=== PATIENT | female | born 1995 | race Caucasian/White ===

== ENCOUNTER 2020-04-21 07:40 | Outpatient (REF) | payer OTHER, SELFPAY ==
[2020-04-21 08:53] LABS: MANUAL DIFF FLAG NO
[2020-04-21 09:02] LABS: Basophils Absolute Auto 0.1 X10*3/uL (0.0-0.2); Basophils Percent Auto 1.1 % (0-2); Eosinophils Absolute Auto 0.2 X10*3/uL (0.0-0.4); Eosinophils Percent Auto 3.2 % (0-4); Hematocrit 40.8 % (37-47); Hemoglobin 13.8 g/dl (12.0-16.0); Imm Gran Abs Auto 0.01 X10*3/uL (0.00-0.03); Imm Gran Pct Auto 0.2 % (0.0-0.4); Lymphocytes Absolute Auto 1.5 X10*3/uL (1.2-4.9); Lymphocytes Percent Auto 31.4 % (20-40); Mean Corpuscular HGB Conc 33.8 g/dl (31.0-35.0); Mean Corpuscular Hemoglobin 28.4 pg (27.0-33.0); Mean Platelet Volume 10.9 fL (9.4-12.3); Monocytes Absolute Auto 0.3 X10*3/uL (0.1-1.2); Monocytes Percent Auto 6.5 % (2-11); Neutrophils Absolute Auto 2.7 X10*3/uL (2.0-8.3); Neutrophils Percent Auto 57.6 % (45-73); Platelet Count 221 X10*3/uL (160-400); Red Blood Count 4.86 X10*6/uL (4.20-5.50); Red Cell Distribution Width 12.5 % (11.0-16.0); White Blood Count 4.6 X10*3/uL (4.8-10.8)
[2020-04-21 09:31] LABS: Alanine Aminotransferase 16 U/L (0-31); Albumin Level 4.3 g/dL (3.5-5.0); Alkaline Phosphatase 77 U/L (39-117); Anion Gap 12 (12-20); Aspartate Amino Transferase 13 U/L (5-31); Bilirubin Total 0.4 mg/dL (0.0-1.0); Blood Urea Nitrogen 14 mg/dL (9-16); C Reactive Protein 0.04 mg/dL (< or = 0.50); Calcium 9.4 mg/dL (8.4-10.2); Carbon Dioxide 27 mmol/L (22-29); Chloride 105 mmol/L (96-108); Cholesterol 203 mg/dL; Estimated Glomerular Filt Rate > 60; Glucose Random 91 mg/dL (60-115); HDL Cholesterol 49 mg/dL; Iron 75 mcg/dL (30-160); LDL Cholesterol Calculated 131 mg/dl; Percent Iron Saturation 19 % (15-50); Sodium 140 mmol/L (135-145); Total Iron Binding Capacity 387 mcg/dL (228-428); Total Protein 6.6 g/dL (6.5-8.0); Triglycerides 118 mg/dL; Unsaturated Iron Binding 312 ug/dL
[2020-04-21 09:41] LABS: Ferritin 22 ng/mL (10-122); Free T4 (Free Thyroxine) 0.95 ng/dL (0.71-1.85); Thyroid Stimulating Hormone 1.32 mIU/mL (0.32-4.0)
[2020-04-21 10:03] LABS: Estimated Average Glucose 94 mg/dL; Hemoglobin A1c % 4.9 %
[2020-04-22 09:05] LABS: Triiodothyronine T3 Free 2.9 pg/mL (2.3-4.2)
[2020-04-24 13:52] LABS: Insulin Level Total 9.1 uIU/mL
[2020-04-24 16:32] LABS: Calcium (PTHI) 9.7 mg/dL (8.6-10.2); PTHI 51 pg/mL (14-64)
[2020-04-24 17:21] LABS: Zinc 77 mcg/dL (60-130)
[2020-04-24 21:20] LABS: Folate 7.6 ng/mL (> or = 4.0); Vitamin B12 731 pg/mL (200-900)
[2020-04-26 12:31] LABS: Vitamin B1 8 nmol/L (8-30)
[2020-04-26 13:17] LABS: Vitamin A 44 mcg/dL (38-98)
== END 2020-04-21 07:41 | disposition home or self-care (01) ==
LOC: HO.LAB 07:40
PROVIDERS: PCP Internal Medicine; Visit Provider Surgery
DX: K90.49 Malabsorption due to intolerance, not elsewhere classified (principal); E03.9 Hypothyroidism, unspecified
CPT/HCPCS: 36415; 80053; 80061; 82306; 82607; 82728; 82746; 83036; 83525; 83540; 83970; 84425; 84439; 84443; 84481; 84590; 84630; 85025; 86140

== ENCOUNTER → 2020-05-26 08:19 | Outpatient (BNVA) | payer OTHER, SELFPAY | PROVIDERS: PCP Family Medicine; Referring Provider Family Medicine; Visit Provider Physician Assistant | DX: Z76.89 Persons encountering health services in other specified circumstances (principal) ==

== ENCOUNTER → 2020-07-31 10:44 | Outpatient (BNVA) | payer OTHER, SELFPAY | PROVIDERS: Visit Provider Surgery ==

== ENCOUNTER → 2020-09-06 11:10 | Outpatient (BNVA) | payer OTHER, SELFPAY | PROVIDERS: Visit Provider Surgery | DX: E66.3 Overweight (principal); P38.9 Omphalitis without hemorrhage | CPT/HCPCS: 99212 ==

== ENCOUNTER → 2020-10-11 13:10 | Outpatient (BNVA) | payer OTHER, SELFPAY | PROVIDERS: Visit Provider Surgery | DX: M79.3 Panniculitis, unspecified (principal); P38.9 Omphalitis without hemorrhage; L03.90 Cellulitis, unspecified | CPT/HCPCS: 99212 ==

== ENCOUNTER → 2020-11-10 08:11 | Outpatient (BNVA) | payer OTHER, SELFPAY | PROVIDERS: Visit Provider Surgery ==

== ENCOUNTER 2021-02-28 14:22 | Emergency (ER) | payer OTHER, SELFPAY ==
--- NOTE | ~2021-02-28 | CT_ITS ---
EXAMINATION: CT ABDOMEN AND PELVIS WITHOUT CONTRAST CLINICAL INFORMATION: Epigastric pain COMPARISON: None TECHNIQUE: Multidetector volumetric imaging was performed from the superior aspect of the liver through the pubic symphysis. Sagittal and coronal reformatted images were obtained on the technologist's workstation. This CT examination was performed using dose optimization techniques as appropriate, variously including the following: *Automated exposure control *Adjustment of mA and/or kV according to patient size (this includes techniques or standardized protocols for targeted exams where dose is matched to indication/reason for exam; i.e. extremities or head) *Use of iterative reconstruction technique DLP: 382 mGy-cm FINDINGS: LUNG BASES: The visualized lung bases are unremarkable. LIVER, GALLBLADDER, AND BILIARY TREE: Small area of low attenuation right lobe liver lower image 23 uncertain allergy. May well be incidental cysts. Mild high density in the gallbladder may represent sludge or stones PANCREAS: Region of the pancreas is not adequately defined. No obvious free fluid in the region. Unopacified bowel and noncontrast study. High density structure in the region of the tail the pancreas may be a migrated surgical staple SPLEEN: Unremarkable. ADRENAL GLANDS: Unremarkable. KIDNEYS AND URETERS: No obvious hydronephrosis. No stone BLADDER: Unremarkable. GASTROINTESTINAL TRACT: Thin is limited from lack of oral and intravenous contrast. There are surgical sutures in likely amada around the region of the stomach. No free fluid is seen in the area. The bowel pattern is overall nonobstructing. Some mildly prominent caliber small bowel loops in left upper quadrant. Again no obvious obstruction. ABDOMINAL WALL: No significant hernia is appreciated. LYMPH NODES: Normal. VASCULAR: Unremarkable. PELVIC VISCERA: Cystic change in the left adnexa. 0.3 x 4.4 cm. IUD associated with the uterus OSSEOUS STRUCTURES: Unremarkable. CT/CT abdomen pelvis wo con IMPRESSION: This exam is limited from lack of oral and intravenous contrast. Mildly prominent caliber small bowel loops in left upper quadrant however overall nonobstructive bowel pattern. This may represent a focal ileus. Cystic change associated with the left adnexa. Consider ultrasound. The region the pancreas is poorly defined. No free fluid in the area. There is a surgical skin staple which may have migrated inferiorly into the region of the tail of the pancreas
--- NOTE | ~2021-02-28 | US_ITS ---
EXAMINATION: US ABDOMEN LIMITED CLINICAL INFORMATION: Rule out cholecystitis. COMPARISON: None TECHNIQUE: Real-time imaging of the right upper quadrant abdominal viscera. FINDINGS: PANCREAS: Within normal limits. Liver is within normal limits. No ductal dilatation. There is no free fluid. There is a small fixed filling defect in the gallbladder measuring 3 mm. May well represent a small polyp. No edema. Common duct is measuring 2 mm normal. Right kidney is 9 cm within normal limits. No hydronephrosis or stone. US/US abdomen limited IMPRESSION: Small polyp in the gallbladder. No evidence of cholelithiasis or cholecystitis. No ductal dilatation
[2021-02-28 15:30] VITALS: BP 112/71; PULSE 94; RESP 18; TEMP 36.7; O2SAT 99; BMI 25.7
[2021-02-28 17:01] LABS: MANUAL DIFF FLAG NO
[2021-02-28 17:05] LABS: Basophils Percent Auto 0.6 % (0-2); Eosinophils Percent Auto 0.6 % (0-4); Hematocrit 39.6 % (37-47); Hemoglobin 13.7 g/dl (12.0-16.0); Imm Gran Abs Auto 0.02 X10*3/uL (0.00-0.03); Imm Gran Pct Auto 0.4 % (0.0-0.4); Lymphocytes Absolute Auto 1.7 X10*3/uL (1.2-4.9); Lymphocytes Percent Auto 32.2 % (20-40); Mean Corpuscular HGB Conc 34.6 g/dl (31.0-35.0); Mean Corpuscular Volume 83.7 fL (80-98); Mean Platelet Volume 8.7 fL (9.4-12.3); Monocytes Absolute Auto 0.2 X10*3/uL (0.1-1.2); Monocytes Percent Auto 4.4 % (2-11); Neutrophils Absolute Auto 3.3 X10*3/uL (2.0-8.3); Neutrophils Percent Auto 61.8 % (45-73); Platelet Count 327 X10*3/uL (160-400); Red Blood Count 4.73 X10*6/uL (4.20-5.50); Red Cell Distribution Width 11.9 % (11.0-16.0); White Blood Count 5.3 X10*3/uL (4.8-10.8)
[2021-02-28 17:40] LABS: Glucose Urine UA NEG (NEG); Leukocyte Esterase Urine NEG (NEG); Nitrite Urine NEG (NEG); Urine Blood NEG (NEG); Urine Ketones NEG (NEG); Urine Protein NEG (NEG-TRACE)
[2021-02-28 17:42] LABS: Appearance Urine CLEAR; Color Urine YELLOW
[2021-02-28 17:45] LABS: Alanine Aminotransferase 11 U/L (0-31); Albumin Level 4.4 g/dL (3.5-5.0); Alkaline Phosphatase 70 U/L (39-117); Anion Gap 13 (12-20); Aspartate Amino Transferase 13 U/L (5-31); Bilirubin Total 0.8 mg/dL (0.0-1.0); Blood Urea Nitrogen 13 mg/dL (9-16); Calcium 9.8 mg/dL (8.4-10.2); Carbon Dioxide 29 mmol/L (22-29); Chloride 104 mmol/L (96-108); Creatinine Clr Calc Pharmacy 65.4; Estimated Glomerular Filt Rate > 60; Glucose Random 91 mg/dL (60-115); Potassium 3.8 mmol/L (3.3-5.1); Sodium 142 mmol/L (135-145)
--- NOTE | 2021-02-28 19:22 | ED.ABDPAIN ---
HPI - Abdominal Pain General Chief Complaint: Abdominal Pain Stated Complaint: abd pain Time Seen by Provider: 02/28/21 16:10 Source: patient Mode of arrival: ambulatory Limitations: no limitations History of Present Illness HPI narrative: Patient comes emergency room complaining of severe abdominal pain with food intake. Patient states that for about 5 days now, any time that she eats anything solid, the pain starts, fluid also trigger the pain but is not as bad as with solids. Patient had bariatric surgery done in December of 2019. Patient states she has been doing well. Patient denies vomiting or diarrhea Related Data Home Medications Medication Instructions Recorded Confirmed methylphenidate HCl 54 mg 54 mg PO DAILY 05/26/20 05/26/20 tablet,extended release 24 hr (Concerta) Previous Rx's Medication Instructions Recorded clotrimazole 1 % topical cream 1 appl TOPICAL BID #30 g 10/14/20 (Antifungal (clotrimazole)) pantoprazole 40 mg granules 40 mg PO DAILY #14 ea 02/28/21 delayed-release for susp in packet (Protonix) sucralfate 1 gram tablet (Carafate) 1 g PO QID #30 tab 02/28/21 Allergies Allergy/AdvReac Type Severity Reaction Status Date / Time lamotrigine [From LAMICTAL] Allergy Intermediate FLUSHING/PUFFY Verified 02/28/21 15:30 FACE phenytoin [From DILANTIN] Allergy Intermediate FLUSHING/PUFFY Verified 02/28/21 15:30 FACE Dilantin Allergy Unknown swelling Uncoded 10/11/20 13:19 Lamictal Allergy Unknown swelling Uncoded 10/11/20 13:19 Review of Systems Review of Systems Constitutional : No Weight loss, No Fever, No Chills, No Night Sweats, No Fatigue, No Malaise ENT/Mouth : No Hearing loss, No Ear Pain, No Nasal Congestion, No Sinus Pain, No Hoarseness, No sore throat, No Rhinorrhea, No Swallowing Difficulty Eyes: No Eye Pain, No Swelling, No Redness, No Foreign Body, No Discharge, No Vision Changes Cardiovascular : No Chest Pain, No SOB, No Dyspnea on Exertion, No Orthopnea, No Edema, No Palpitations Respiratory : No Cough, No Sputum, No Wheezing, No Smoke Exposure, No Dyspnea Gastrointestinal : Patient complaining of severe abdominal pain when eating solids, mild discomfort when he is drinking fluids. Otherwise no abdominal pain. Genitourinary : no irregular bleeding, No Dysuria, No Urinary Frequency, No Hematuria, No Urinary Incontinence, No Urgency, No Flank Pain, No Urinary Flow Changes, No Hesitancy Musculoskeletal : No joint pain, No Myalgias, No Joint Swelling Skin : No Skin Lesions, No rash Neuro : No Weakness, No Numbness, No Paresthesias, No Loss of Consciousness, No Dizziness, No Headache Psych : No Anxiety/Panic, No Depression, No SI/HI/AH/VH, No Social Issues, Heme/Lymph: No Bruising, No Bleeding,No Lymphadenopathy Endocrine : No Polyuria, No Polydipsia, No Temperature Intolerance Physical Exam Vital Signs: Vital Signs: Last Vital Signs Temp 98.5 F 02/28/21 21:56 Pulse 62 02/28/21 21:56 Resp 16 02/28/21 21:56 BP 101/63 02/28/21 21:56 Pulse Ox 98 02/28/21 21:56 Body Mass Index 25.7 Const: Other: Appearance: Alert. Oriented X3. No acute distress. Eyes: Pupils equal, round and reactive to light. ENT: Pharynx normal. Neck: Normal inspection. Neck supple. No lymph nodes noted. No crepitus CVS: Normal heart rate and rhythm. Pulses normal. Normal S1 and S2 Respiratory: No respiratory distress. Breath sounds normal. No Wheezing. No rales Abdomen: Soft , tenderness to palpation in right and left upper quadrants. No rigidity. No distention. Skin: Skin warm and dry. Normal skin color. Normal skin turgor. Extremities: No lower extremity edema. No lower extremity edema. No Lacerations. No Rash Neuro: Oriented X 3. No motor deficit. No sensory deficit. Moving all extermities. No slurred speech. Course Course Course Narrative: I discussed the CT scan and the ultrasound with the patient, no acute findings. Bariatric surgery consult pending. I discussed the patient with Dr. Camargo, recommendations are to start patient on Carafate and Protonix, and to follow up with Dr. Nicole on Friday. When I went to the patient's room to discuss with her the plan, the patient was not in her room, we looked for the patient in the emergency room, patient eloped MDM - Abdominal Pain Lab Data Result diagrams: 02/28/21 16:55 02/28/21 16:55 Labs: Lab Results 02/28/21 02/28/21 02/28/21 Range/Units 16:55 16:55 17:06 WBC 5.3 (4.8-10.8) X10*3/uL RBC 4.73 (4.20-5.50) X10*6/uL Hgb 13.7 (12.0-16.0) g/dl Hct 39.6 (37-47) % MCV 83.7 (80-98) fL MCH 29.0 (27.0-33.0) pg MCHC 34.6 (31.0-35.0) g/dl RDW 11.9 (11.0-16.0) % Plt Count 327 D (160-400) X10*3/uL MPV 8.7 L (9.4-12.3) fL Immature Gran % (Auto) 0.4 (0.0-0.4) % Neut % (Auto) 61.8 (45-73) % Lymph % (Auto) 32.2 (20-40) % [place] % (Auto) 4.4 (2-11) % Eos % (Auto) 0.6 (0-4) % Baso % (Auto) 0.6 (0-2) % Lymph # (Auto) 1.7 (1.2-4.9) X10*3/uL [place] # (Auto) 0.2 (0.1-1.2) X10*3/uL Eos # (Auto) 0.0 (0.0-0.4) X10*3/uL Baso # (Auto) 0.0 (0.0-0.2) X10*3/uL Abs Immat Gran (auto) 0.02 (0.00-0.03) X10*3/uL Absolute Neuts (auto) 3.3 (2.0-8.3) X10*3/uL Absolute Nucleated RBC 0.000 (0.0-0.012) X10*3/uL Nucleated RBC % (auto) 0.0 (0.0-0.2) /100WBC Sodium 142 (135-145) mmol/L Potassium 3.8 (3.3-5.1) mmol/L Chloride 104 (96-108) mmol/L Carbon Dioxide 29 (22-29) mmol/L Anion Gap 13 (12-20) BUN 13 (9-16) mg/dL Creatinine 0.87 (0.5-1.4) mg/dL Estim Creat Clear Calc 65.4 Estimated GFR > 60 Random Glucose 91 (60-115) mg/dL Calcium 9.8 (8.4-10.2) mg/dL Total Bilirubin 0.8 (0.0-1.0) mg/dL AST 13 (5-31) U/L ALT 11 (0-31) U/L Alkaline Phosphatase 70 (39-117) U/L Total Protein 7.0 (6.5-8.0) g/dL Albumin 4.4 (3.5-5.0) g/dL Urine Color YELLOW Urine Appearance CLEAR Urine pH 6.0 (5.0-8.0) Ur Specific [place] 1.020 (1.005-1.025) Urine Protein NEG (NEG-TRACE) MG/DL Urine Glucose (UA) NEG (NEG) MG/DL Urine Ketones NEG (NEG) MG/DL Urine Blood NEG (NEG) Urine Nitrite NEG (NEG) Ur Leukocyte Esterase NEG (NEG) Urine Test (NEGATIVE) 02/28/21 Range/Units 17:06 WBC (4.8-10.8) X10*3/uL RBC (4.20-5.50) X10*6/uL Hgb (12.0-16.0) g/dl Hct (37-47) % MCV (80-98) fL MCH (27.0-33.0) pg MCHC (31.0-35.0) g/dl RDW (11.0-16.0) % Plt Count (160-400) X10*3/uL MPV (9.4-12.3) fL Immature Gran % (Auto) (0.0-0.4) % Neut % (Auto) (45-73) % Lymph % (Auto) (20-40) % [place] % (Auto) (2-11) % Eos % (Auto) (0-4) % Baso % (Auto) (0-2) % Lymph # (Auto) (1.2-4.9) X10*3/uL [place] # (Auto) (0.1-1.2) X10*3/uL Eos # (Auto) (0.0-0.4) X10*3/uL Baso # (Auto) (0.0-0.2) X10*3/uL Abs Immat Gran (auto) (0.00-0.03) X10*3/uL Absolute Neuts (auto) (2.0-8.3) X10*3/uL Absolute Nucleated RBC (0.0-0.012) X10*3/uL Nucleated RBC % (auto) (0.0-0.2) /100WBC Sodium (135-145) mmol/L Potassium (3.3-5.1) mmol/L Chloride (96-108) mmol/L Carbon Dioxide (22-29) mmol/L Anion Gap (12-20) BUN (9-16) mg/dL Creatinine (0.5-1.4) mg/dL Estim Creat Clear Calc Estimated GFR Random Glucose (60-115) mg/dL Calcium (8.4-10.2) mg/dL Total Bilirubin (0.0-1.0) mg/dL AST (5-31) U/L ALT (0-31) U/L Alkaline Phosphatase (39-117) U/L Total Protein (6.5-8.0) g/dL Albumin (3.5-5.0) g/dL Urine Color Urine Appearance Urine pH (5.0-8.0) Ur Specific [place] (1.005-1.025) Urine Protein (NEG-TRACE) MG/DL Urine Glucose (UA) (NEG) MG/DL Urine Ketones (NEG) MG/DL Urine Blood (NEG) Urine Nitrite (NEG) Ur Leukocyte Esterase (NEG) Urine Test NEGATIVE (NEGATIVE) Discharge Plan Discharge Clinical Impression: Gastritis Qualifiers: Gastritis type: unspecified gastritis Chronicity: acute Gastritis bleeding: without bleeding Qualified Code(s): K29.00 - Acute gastritis without bleeding Patient Disposition: Elopement Instructions: Gastritis (ED) Additional Instructions: Please follow-up with your primary care physician tomorrow. If you have any worsening or new symptoms, please return to the emergency room or call 911 Prescriptions: New pantoprazole [Protonix] [address] for susp in packet 40 mg PO DAILY Qty: 14 RF: 0 sucralfate [Carafate] 1 gram tablet 1 g PO QID Qty: 30 RF: 0 No Action clotrimazole [Antifungal (clotrimazole)] 1 % cream 1 appl topical BID Qty: 30 RF: 2 methylphenidate HCl [Concerta] 54 mg tablet extended release 24hr 54 mg PO DAILY RF: 0 Referrals: Terry Nicole MD [Physician] - 2 days PMFSH Past Medical History Medical History ADHD (attention deficit hyperactivity disorder) Hyperlipidemia Malabsorption due to intolerance, not elsewhere classified Morbid obesity Overweight (BMI 25.0-29.9) Surgical History History of sleeve gastrectomy Hx of section S/P tonsillectomy Family History Family History Father No problems noted. Mother No problems noted. Daughter No problems noted. Daughter No problems noted. Social History Social History Alcohol intake: never Advance Directives: No Advance Directives Information Provided: No Patient : No
[2021-02-28 19:55] LABS: UPreg QC Valid YES; Urine Pregnancy NEGATIVE (NEGATIVE)
[2021-02-28 20:00] VITALS: BP 102/66; PULSE 78; RESP 16; TEMP 37; O2SAT 98
[2021-02-28 21:56] VITALS: BP 101/63; PULSE 62; RESP 16; TEMP 36.9; O2SAT 98
== END 2021-02-28 23:29 | disposition left against medical advice (07) ==
PROVIDERS: Emergency Provider Emergency Medicine; PCP Internal Medicine
DX: K29.00 Acute gastritis without bleeding (principal); Z90.3 Acquired absence of stomach [part of]
CPT/HCPCS: 36415; 74176; 76705; 80053; 81003; 81025; 85025; 99284

== ENCOUNTER → 2021-04-04 14:00 | Outpatient (BNVA) | payer OTHER, SELFPAY | PROVIDERS: PCP Internal Medicine; Visit Provider Physician Assistant Surgical ==

== ENCOUNTER → 2021-04-18 08:14 | Outpatient (BNVA) | payer OTHER, SELFPAY | PROVIDERS: PCP Internal Medicine; Visit Provider Dietitian, Registered | DX: E66.3 Overweight (principal) | CPT/HCPCS: 97803 ==

== ENCOUNTER → 2021-05-02 08:10 | Outpatient (BNVA) | payer OTHER, SELFPAY | PROVIDERS: PCP Internal Medicine; Referring Provider Surgery; Visit Provider Dietitian, Registered ==

== ENCOUNTER 2025-05-09 13:50 | Outpatient (AMB) | payer OTHER, SELFPAY ==
--- NOTE | 2025-05-09 15:47 | A.OFFVIS_ITS ---
VS Expanded 05/09/25 16:13 Height 4 ft 8 in Weight 165 lb BMI 37.0 Intake Visit Reasons: Phone PO LSG 12/28/19 *GLP-1* Allergies lamotrigine (From LAMICTAL) Allergy (Intermediate, Verified 02/28/21 15:30) FLUSHING/PUFFY FACE phenytoin (From DILANTIN) Allergy (Intermediate, Verified 02/28/21 15:30) FLUSHING/PUFFY FACE Dilantin Allergy (Unknown, Uncoded 10/11/20 13:19) swelling Lamictal Allergy (Unknown, Uncoded 10/11/20 13:19) swelling Medication List - Last Reconciled 05/09/25 by DARIA Duffy No Known Home Meds HPI Comments Details: This?is a?29?yo F who is s/p LSG 12/28/2019. Presents for 4y 4mo post op visit. Weight at last visit in 2020 was 114lbs. Pt reports over the last year her eating habits fell through the cracks and she feels her sleeve has stretched out. Present meal plan includes: Exercise routine includes: [facility] Medical History (Updated 05/09/25 @ 16:33 by DARIA Duffy) Hyperlipidemia Morbid obesity ADHD (attention deficit hyperactivity disorder) Overweight (BMI 25.0-29.9) Malabsorption due to intolerance, not elsewhere classified Surgical History (Updated 03/07/21 @ 12:56 by Kendra Florence PA-C) S/P tonsillectomy Hx of section History of sleeve gastrectomy Family History Father No problems noted. Mother No problems noted. Daughter No problems noted. Daughter No problems noted. Social History Alcohol intake: never Telehealth Telehealth Telehealth Platform: Telephone Location of provider rendering services: practice address Location of patient: address on file Patient Identification confirmed using: Name, : Yes Telehealth method: voice only Patient verbally consented to treatment: Yes Patient verbally consented to billing insurance company: Yes Patient informed of any privacy concerns related to visit: Yes Minutes spent on Phone/Video with Pt.: 18 Assessment & Plan Assessment & Plan (1) History of sleeve gastrectomy: Comment: DOS 12/28/19, Dr. Nicole Code(s): Z90.3 - Acquired absence of stomach [part of] Category: Medical (2) Obesity: Code(s): E66.9 - Obesity, unspecified Category: Medical Plan Pt is interested in starting GLP1. Reviewed contraindications, discussed dosing. Discussed need for adequate protein intake while on GLP1s as well as frequent communication with our office. Pt will check in with me weekly and is aware that subsequent Rx will be dependent on frequent communication. She is interested in self pay option, rx sent to [facility]. [facility] tony info sent to pt. Instructed her to create a plan in the tony and follow. Pt email [email or web address] in for follow up, pt will text me with weekly weights/ Medications: New tirzepatide (weight loss) (Zepbound) 2.5 mg (0.5 mL) subcut QWEEK 2 mL 0RF 4 weeks
[2025-05-09 16:13] VITALS: BMI 37.0
--- OUTSIDE RECORDS SUMMARY | 2025-05-09 17:29 | XMS_ITS | Data Portability ---
Author Organization [place] - [facility] Address [address] [place] [id number] Care Team Providers Care Digital Director Name Role Phone KOREY LOPEZ Primary Care Provider Assessment Encounter Date Assessment Date Assessment LastModified by Organization Details LastModified Time 03/23/2020 03/23/2020 Overview/History :Siri pimentel is a 24-year-old female that contact [facility] with complaints of chest congestion, cough for the past several days. She has been having runny nose and had some sore throat which has resolved. She denies any recent sick contacts. No fevers or chills. Reports loss of sense of taste and smell. Exam: On exam patient is awake alert, afebrile and hemodynamically stable. Lungs clear to auscultation bilaterally, heart rate regular. No erythema oropharynx, moist mucous membranes, no lymphadenopathy. She was noted to have clear nasal discharge. Nontoxic appearing. DDx considered, but not limited to:Given her cough and symptoms of loss of taste and smell, will swab her for COVID-19. Her symptoms also sound consistent with allergic rhinitis, I suspect that this is the cause of her runny nose and sensation of congestion. This is also likely caused her sore throat due to postnasal drip. Low suspicion for any bacterial infection as patient is afebrile. Low suspicion for pneumonia given clear breath sounds and no fever. Work up/Results:COVID-1 9 swab pending. Plan/Discussion:I discussed with the patient that her symptoms are somewhat consistent with reported symptoms of COVID-19 and that she will be tested for this. I also discussed with her that her symptoms are also somewhat consistent with seasonal allergies. She is not taking any allergy medication. I had given her a prescription for cetirizine because see if this helps with her nasal symptoms which will likely help with her cough and sore throat. I had also given her a prescription for Tessalon Perls. I have encouraged her to stay well hydrated. She is concerned about dehydration due to her recent gastric sleeve procedure, I did reassure her that she had moist mucous membranes today and normal vital signs supporting that she is well hydrated. We will be in touch with her with results of her COVID-19 test once that has been resulted. In order to obtain further information and compare any laboratory results/values, I have accessed patient records on the [place] [facility]. This information was pertinent in my medical decision making today. Proper Personal Protective Equipment (PPE), including gloves, eye protection, N95 mask, gown, and shoe covers were donned and doffed appropriately and all equipment cleaned using approved technique with germicidal disposable wipes prior to and after care of this patient according to [facility] infection prevention protocols. Time On Scene with Patient: 00:17:38 [email or web address] Not available 03/23/2020 17:52:04 01/07/2022 01/07/2022 26 YO F patient who states she experienced facial pressure and purulent nasal drainage x 3 weeks. Symptoms resolved and now she is experiencing left ear pain/pressure with temp relief with certain position. Exam: Very pleasant, female sitting in couch conversing with DH staff and answering all questions appropriately. No acute distress, neurologically intact, EOMI, oropharynx clear with moist mucous membranes. Left TM with cerumen impaction, after some cerumen removal with curette TM bulging and erythematous. Respirations even and nonlabored, bilateral breath sounds clear to auscultation. Heart RRR. Moves all extremities. Test: N/a Plan: - Debrox otic prescribed to assist with cerumen impaction. Recommended avoid use of q-tips. -Augmentin prescribed for otitis media. The patient is advised to make an appt with PCP in 3-5 days to discuss ongoing symptoms/ further management. The patient is also advised to go to the ED immediately for any worsening symptoms. The patient understood and agreed with this plan. The patient was given discharge instructions and all questions were answered prior to DH team departure. [email or web address] Not available 01/07/2022 21:19:21 Plan of Treatment Reminders Order Date Submit Date Provider Last Modified By Organization Details Last Modified Time Details Appointments None recorded. Lab SARS CoV 2 RNA (COVID-19) , QL, board worker-PCR, respirator y specimen 2019 020 [facility] (Centralized Electronic Ordering - All Locations), Patient Can Go To The Location Of Their Choice, [id number] 0 23:07:03 Referral None recorded. Procedures None recorded. Surgeries None recorded. Imaging None recorded. Medication Orders amoxicilli n 875 mg-potassi um clavulanat e 125 mg tablet 2021 022 [facility]acy #1972, [address] [facility], [place], [address], 2 21:05:45 Debrox 6.5 % ear drops 2021 022 [facility]/Pharmacy #1972, [address] [place], [address], 2 21:04:55 cetirizine 10 mg tablet 2019 020 [facility], [address], [place], [address], 0 15:49:54 Tessalon Perles 100 mg capsule 2019 020 [facility], [address] [place], [address], 0 15:49:54 Patient TargetsNo targets recorded. Patient Instructions Encounter Date Encounter Id Patient Instructions Last Modified By Organization Details Last Modified Time 01/07/2022 [id number] [facility] you [facility] yo [facility]. We cannot always find the exact cause of your symptoms during your initial visit. Please follow up with your primary care provider or specialist within 2-3 days to be rechecked or seek medical attention if your symptoms do not go away or get worse. If you develop any new or worsening symptoms and need after hours care, please go to nearest ER and/or call 911. If you have additional concerns or develop a change in your condition between 8am-10pm, please call [facility] at [phone] to help navigate your care. [email or web address] Not available 01/07/2022 21:05:21 Reason for Referral None Reported. Results Created Date Observation Date Name Description Value Unit Range Abnormal Flag Note LastModifiedBy Organization Detail LastModifiedTime 03/23/20 20 03/25/2020 SARS CoV 2 RNA (COVI D-19) , QL, board worker-P CR, respi rator y speci men covid-19, MARCELINA Not Detec unique Refer ence range : Not Detec unique (NOTE ) This nucle ic acid ampli ficat ion test was devel oped and its perfo rmanc e kaleb cteri stics deter mined by [facility]. Nucle ic acid ampli ficat ion tests inclu de PCR and TMA. This test has not been FDA clear ed or appro lizbeth. This test has been autho rized by FDA under an Emerg ency Use Autho rizat ion (EUA) . This test is only autho rized for the durat ion of time the decla ratio n that circu mstan eric exist justi fying the autho rizat ion of the emerg ency use of in vitro diagn ostic tests for detec tion of SARS- CoV-2 virus and/o r diagn osis of COVID -19 infec tion under secti on 564(b )(1) of the Act, 21 U.S.C . 360bb b-3(b ) (1), unles s the autho rizat ion is termi nated or revok ed soone r. When diagn ostic testi ng is negat dior, the possi bilit y of a false negat dior resul t shoul d be consi dered in the shon xt of a patie nt's recen t expos ures and the prese nce of clini stephan signs and sympt oms consi stent with COVID -19. An indiv idual witho ut sympt oms of COVID - 19 and who is not marky ing SARS- CoV-2 virus would expec t to have a negat dior (not detec unique) resul t in this assay . TEST PERFO RMED BY Entrec RP, RARIT AN, RAJAN PAYNE Y Not Available [facility] (Centralized Electronic Ordering - All Locations) Patient Can Go To The Location Of Their Choice, [id number] 03/25/2020 23:07:03 Result Notes None recorded. Procedures Surgical History Date Name Laterality Status Provider Name and Address Organization Details Recorded Time 01/08/20 22 FB Removal, Ear/Nose - DH completed Yuki PIETRO Greene [address], [place], [address], [place] [facility] 01/07/2022 21:12:52 03/23/20 20 Medication Review completed KAREN WALSH NP [address], [place], [address], [place] [facility] 03/23/2020 17:52:07 Imaging Results None recorded. Procedure Notes None recorded. Medical Equipment None Reported. Allergies No known drug allergies Medications Name Sig Start Date Stop Date Status Note LastModified by Organization Details LastModified Time acetaminoph en 325 mg tablet TAKE 2 TABLETS BY MOUTH EVERY 4 HOURS NEEDED FOR PAIN (LIMIT 4000MG OF TYLENOL/A PAP/ACETA MINOPHEN) active Not Available Not Available No t Available Concerta 18 mg tablet,exte nded release TAKE 1 TABLET BY MOUTH DAILY IN AM FOR ADHD active Not Available Not Available No t Available cetirizine 10 mg tablet Take 1 tablet every day by oral route. active Not Available Not Available No t Available Stool Softener 100 mg capsule TAKE 1 CAPSULE BY MOUTH TWO TIMES A DAY NEEDED FOR CONSTIPAT ION 03/23 completed Not Available Not Available Not Available fluconazole 150 mg tablet TAKE 1 TABLET EVERY 72 HOURS BY ORAL ROUTE FOR 2 DAYS active Not Available Not Available No t Available methylpheni date 10 mg tablet TAKE 1 TABLET BY MOUTH 3 TIMES A DAY FOR ADHD active Not Available Not Available No t Available valacyclovi r 1 gram tablet TAKE 1 TABLET BY MOUTH EVERY DAY active Not Available Not Available No t Available methylpheni date 20 mg tablet TAKE 1 TABLET BY MOUTH 3 TIMES A DAY active Not Available Not Available No t Available sucralfate 100 mg/mL oral suspension 10 ML ON AN EMPTY STOMACH TWICE A DAY ORALLY 30 DAY(S) 03/23 completed Not Available Not Available Not Available metronidazo le 0.75 % (37.5 mg/5 gram) vaginal gel INSERT 1 APPLICATO RFUL BY VAGINAL ROUTE AT BEDTIME FOR 7 DAYS. active Not Available Not Available No t Available methylpheni date ER 54 mg tablet,exte nded release 24 hr TAKE 1 TABLET BY MOUTH DAILY IN AM FOR ADHD 03/23 completed Not Available Not Available Not Available metronidazo le 500 mg tablet TAKE 1 TABLET BY MOUTH TWICE A DAY FOR 7 DAYS 03/23 completed Not Available Not Available Not Available valacyclovi r 500 mg tablet TAKE 1 TABLET BY MOUTH TWICE A DAY 03/23 completed Not Available Not Available Not Available levothyroxi ne 25 mcg tablet TAKE 1 TABLET EVERY MORNING ON EMPTY STOMACH active Not Available Not Available No t Available Mi-Acid Gas Relief (simethicon e) 80 mg chewable tablet CHEW 1 TABLET BY MOUTH THREE TIMES A DAY AFTER MEALS AND AT BEDTIME NEEDED FOR GAS 03/23 completed Not Available Not Available Not Available benzonatate 100 mg capsule Take 1 capsule 3 times a day by oral route for 10 days. active Not Available Not Available No t Available pantoprazol e 40 mg tablet,mahesh yed release TAKE 1 TABLET BY MOUTH EVERY DAY active Not Available Not Available No t Available Ear Drops (carbamide peroxide) 6.5 % INSTILL 5 DROPS INTO AFFECTED EAR(S) BY OTIC ROUTE 2 TIMES PER DAY active Not Available Not Available No t Available clindamycin 2 % vaginal cream INSERT 1 APPLICATO RFUL VAGINALLY EVERY DAY AT BEDTIME FOR 7 DAYS active Not Available Not Available No t Available ibuprofen 600 mg tablet TAKE 1 TABLET BY MOUTH FOUR TIMES A DAY NEEDED FOR PAIN 03/23 completed Not Available Not Available Not Available ondansetron 4 mg disintegrat ing tablet 1 TABLET ON THE TONGUE AND ALLOW TO DISSOLVE DAILY NEEDED FOR NAUSEA ORALLY 30 DAY(S) 03/23 completed Not Available Not Available Not Available doxycycline hyclate 100 mg tablet TAKE 1 TABLET BY MOUTH TWICE A DAY FOR 7 DAYS WITH FOOD active Not Available Not Available No t Available amoxicillin 875 mg-potassiu m clavulanate 125 mg tablet Take 1 tablet every 12 hours by oral route as directed for 7 days. active Not Available Not Available No t Available azithromyci n 500 mg tablet TAKE 2 TABLETS BY MOUTH ONCE active Not Available Not Available No t Available GaviLyte-G 236 gram-22.74 gram-6.74 gram-5.86 gram oral solution 03/23 completed Not Available Not Available Not Available Sara (28) 3 mg-0.02 mg tablet 03/23 completed Not Available Not Available Not Available Vitals Date Recorded Heart rate Respiratory rate Oxygen saturation Oxygen saturation in Arterial blood by Pulse oximetry Body temperature Systolic And Diastolic Provider Name and Address Organization Details Last Updated DateTime 2 80 /min 16 /min 97 % 97 % 97.7 [degF] 120/70 mm[Hg] Not Available [facility] 2 20:39:31 Date Recorded Oxygen saturation Oxygen saturation in Arterial blood by Pulse oximetry Heart rate Respiratory rate Body temperature Systolic And Diastolic Provider Name and Address Organization Details Last Updated DateTime 0 97 % 97 % 70 /min 16 /min 97.7 [degF] 112/68 mm[Hg] Not Available [facility] 0 15:37:54 Social History None recorded. Functional Status None recorded. Mental Status None recorded. Family History Nothing Reported. Medical History No medical history recorded. Gynecological HistoryNo gynecological history recorded. Obstetrics History GPAL:G 0 P 0 0 0 0 Past Encounters Encounter ID Performer Location Encounter Start Date Encounter Closed Date Diagnosis/Indication Diagnosis SNOMED-CT Code Diagnosis ICD10 Code Diagnosis IMO Codes Diagnosis Note [id number] KAREN WALSH NP [facility] [address] [place] [address] 03/23/2020 15:06:50 03/27/2020 17:34:36 Seasonal allergic rhinitis 350595387 J30.2 Cough 66569058 R05 Loss of se nse of smell 63186532 R43.0 Exposure t o communicable disease 137121576 Z20.828 [id number] January PIETRO Greene [facility] [place] [address] [place] [address] 01/07/2022 20:32:21 01/16/2022 18:50:38 Impacted cerumen in left ear [id number] 652236 H61.22 Acute left otitis media 405376012 H66.92 Health Concerns Section Related Observation LastModified by Organization Detai ls LastModified Time None Recorded Concern Status LastModified by Organization Details LastModified Time None Recorded Advance Directives Directive None Recorded Payers Insurance Date Sequence Insurance Name Policy Number Policy Jaquez Covered Member ID Jaquez Member ID Guarantor Name 01/22/2022 1 [facility] ([facility]ICA[facility]PLAC[facility] HMO) [id number] Hailey Mark [id number] Hailey Mark 01/09/2022 1 [place] Hailey Mark [id number] Haliey Mark 01/22/2022 1 [facility] ([facility]ICA[facility]PLAC[facility] - HMO) Hailey Mark [id number] Hailey Mark 01/22/2022 1 [facility] (MEDICAID REPLAC[facility] - HMO) [id number] Hailey Mark [id number] Hailey Mark 04/16/2020 1 [place] Hailey Mark [id number] Hailey Mark 03/27/2020 1 [place] Hailey Mark [id number] Hailey Mark 03/22/2020 1 *SELF PAY* Hailey Mark [id number] Hailey Mark 04/16/2020 1 [place] Hailey Mark [id number] Hailey Mark 01/07/2022 1 [facility] (MEDICAID HMO) [id number] Hailey Mark [id number] Hailey Mark 03/22/2020 1 *SELF PAY* Hailey Mark [id number] Hailey Mark 03/27/2020 1 [facility] (MEDICAID HMO) [id number] Hailey Mark [id number] Hailey Mark Notes Date Note Type Note Provider Name and Address Organization Details Recorded Time 03/23/2020 text/html This is a 24-year-old female that is a new patient [facility]. She has no significant past medical history, she did have a gastric sleeve procedure performed earlier this year. She contacted [facility] because she has been having symptoms of runny nose, chest congestion and cough for the past several days. She also reports a loss of her sense of taste and smell. She denies any sick contacts or any exposure to patients known COVID-19. She has been taking opbl-yac-njjrgem cold medicine with little improvement in her symptoms. No body aches. No fevers or chills. KAREN WALSH, [address], [place], [address], [place] - [facility] 03/23/2020 17:52:15 01/07/2022 text/html General HPI Template - DHReported by Patient 26 YO F patient who states she experienced facial pressure and purulent nasal drainage x 3 weeks. Symptoms resolved and now she is experiencing left ear pain/pressure with temp relief with certain position. Yuki Greene NP [address], [place], [address], [place] [facility] 01/07/2022 21:19:30 OBGyn Episode No OBEpisode recorded.
== END 2025-05-09 16:34 | disposition home or self-care (01) ==
LOC: HO.HBS 13:50
PROVIDERS: PCP Internal Medicine; Visit Provider Physician Assistant Surgical
DX: E66.9 Obesity, unspecified (principal); Z68.37 Body mass index [BMI] 37.0-37.9, adult; Z98.84 Bariatric surgery status; Z90.3 Acquired absence of stomach [part of]
CPT/HCPCS: 98009